=== PATIENT | female | born 1975 | race Caucasian/White ===

== ENCOUNTER 2016-10-28 20:56 | Emergency (ER) | payer MEDICAID ==
[2016-10-28] MEDS ORDERED: Ondansetron 4 MG/2 ML SDV IVPUSH ONE ×2 (21:12→23:21)
[2016-10-28] MEDS ORDERED: Aluminum Hydroxide/Magnesium Hydroxide Susp 30 ML Cup PO ONE (21:18)
[2016-10-28 21:54] VITALS: BP 106/55
[2016-10-28] MEDS ORDERED: Iopamidol 755 Mg/ML 100 ML Bottle IV SCH (22:30)
[2016-10-28] MEDS ORDERED: HYDROmorphone 2 MG/ML SDV IVPUSH ONE (23:21)
--- NOTE | 2016-10-29 00:18 | ER ---
DATE SEEN: 10/28/2016 CHIEF COMPLAINT: Abdominal distention. HISTORY OF PRESENT ILLNESS: This is a 41-year-old female with abdominal distention for about a week, but got worse tonight after she ate chicken. She complains that the distention is associated with severe pain, mostly in the right flank that radiates to the back. Has tried Gas-X with no relief. She denies any constipation, but has some nausea. PAST SURGICAL HISTORY: and hysterectomy. REVIEW OF SYSTEMS: No fever. Denies any urinary symptoms, vaginal bleeding, but complains of breast tenderness. PAST MEDICAL HISTORY: Fibromyalgia, IBS. ALLERGIES: She has an extensive list of allergies. Please see the electronic record. PHYSICAL EXAMINATION: VITAL SIGNS: Blood pressure is 106/55, pulse 117, and temp 98.1. ENT: Negative. MENTAL STATUS: Elated mood. No signs of selvin or psychosis. ABDOMEN: Slightly distended. Diffusely tender, but no rebound. Bowel sounds are present. No masses are palpable. LABORATORY DATA: CBC, CMP, and amylase were unremarkable. UA was negative. CT of the abdomen and pelvis showed mildly distended small bowel loops in the pelvis of questionable significance, possibly gastroenteritis. IMPRESSION: Abdominal distention of unknown significance. PLAN: I gave her Zofran total of 8 mg IV, and I gave Dilaudid 1 mg IV. I recommended she continue with current medications and to come back with any worsening symptoms, otherwise see Dr. Morgan on Sunday. /[id number] ALDO/ROSALBA
== END 2016-10-28 23:40 | disposition home or self-care (01) ==
LOC: FB.ED 20:56
DX: R14.0 Abdominal distension (gaseous) (principal)
CPT/HCPCS: 36415; 74177; 80053; 81001; 82150; 85025; 96374; 96375; 96376; 99284; A9270; J1170; J2405; Q9967

== ENCOUNTER 2017-12-24 11:34 | Emergency (ER) | payer MEDICAID ==
[2017-12-24] MEDS ORDERED: HYDROmorphone 2 MG/ML SDV IM ONE (12:13)
[2017-12-24] MEDS ORDERED: traMADol 50 MG Tab PO ONE (12:29)
--- NOTE | 2017-12-24 12:54 | ER ---
DATE SEEN: 12/24/2017 TIME SEEN: 1200 hours. CHIEF COMPLAINT: Pain. HISTORY OF PRESENT ILLNESS: This is a 42-year-old female with left ankle pain after she tripped and fell yesterday going down stairs in her house. She is unable to bear weight, and she has swelling. The pain is severe. PAST MEDICAL HISTORY: Fibromyalgia, ADHD, anxiety, and chronic back pain. SOCIAL HISTORY: Smoker. Denies use of drugs. PHYSICAL EXAMINATION: VITAL SIGNS: Blood pressure is normal. Pulse is 86 and temperature 98.1. MUSCULOSKELETAL: Left ankle revealed marked swelling and effusion. Tenderness to palpation, but normal peripheral pulses. Diminished range of motion. IMAGING: X-ray of the foot and ankle was negative. IMPRESSION: Sprain, ankle and foot, left. PLAN: CAM walker boot. Dilaudid 2 mg IM and tramadol 50 mg t.i.d. p.r.n. Follow up in the office with PCP, Dr. Sage, on Sunday. /[id number] ALDO/ROSALBA
[2017-12-24 14:58] VITALS: BP 116/74
--- NOTE | 2017-12-25 11:30 | CR ---
INDICATION: Left foot pain, missed two steps, rolled ankle, heard pop. LEFT FOOT: Three views of the left foot were obtained and revealed soft tissue swelling overlying the lateral malleolus. A fracture, dislocation, or other significant bone or joint abnormality was not identified. MTDD
--- NOTE | 2017-12-25 11:33 | CR ---
INDICATION: Left foot pain, missed two steps, rolled ankle, heard pop. LEFT ANKLE: Three views of the left ankle were obtained and revealed minimal hypertrophic change at the medial aspect of the ankle mortise - medial malleolus , most likely on the basis of posttraumatic osteoarthritis of mild degree. There appears to be some mild soft tissue swelling over the dorsum of the foot at the level of the metatarsals. A definite fracture, dislocation, or other definite bone or joint abnormality was not identified, except to note a minimal hypertrophic spur off the medial malleolus, which may be on the basis of mild degree of posttraumatic osteoarthritis. IMPRESSION: 1. No definite acute fracture or dislocation. 2. Minimal posttraumatic osteoarthritis ankle mortise. MTDD
== END 2017-12-24 13:25 | disposition home or self-care (01) ==
LOC: FB.ED 11:34
DX: S93.402A Sprain of unspecified ligament of left ankle, initial encounter (principal); W01.0XXA Fall on same level from slipping, tripping and stumbling without subsequent striking against object, initial encounter
CPT/HCPCS: 73610; 73630; 99283; A9270; J1170

== ENCOUNTER 2018-01-11 17:09 | Emergency (ER) | payer MEDICAID ==
[2018-01-11] MEDS ORDERED: hydrOXYzine HCl 50 MG/ML SDV IM ONE (17:20)
--- NOTE | 2018-01-11 17:27 | EDM.PDOC ---
ED HPI GENERAL MEDICAL PROBLEM - General Chief Complaint: Allergic Reaction Stated Complaint: POSSIBLE ALLERGIC REACTION Time Seen by Provider: 01/11/18 17:10 Source of Information: Reports: Patient, EMS History Limitations: Reports: No Limitations - History of Present Illness INITIAL COMMENTS - FREE TEXT/NARRATIVE: Patrick comes into [facility] ED by EMS for suspected allergic reaction to a new antibx Macrodantin 50 mg that was consumed at 3:30 pm today. About 30 minutes after taking the capsule, she felt some tightness in the throat, her tongue may be enlarging, and suspected facial swelling. There was no visible swelling of the lips, hoarseness, stridor, wheezing, or jamari SOB. She summoned EMS for transport. Upon arrival, VSS, no jamari clinical findings for angioedema, urticaria, or analphylaxis. She was empirically dosed with Vistaril 50 mg IM and will be observed for an hour. lower back & legs Pain Score (Numeric/FACES): 7 - Related Data Allergies Allergy/AdvReac Type Severity Reaction Status Date / Time acetaminophen [From Tylenol] Allergy Anaphylactic Verified 01/11/18 18:09 Shock diphenhydramine HCl Allergy Hyperactivi Verified 01/11/18 18:09 [From Benadryl] ty ketorolac tromethamine Allergy Hives Verified 01/11/18 18:09 [From Toradol] meperidine HCl [From Demerol] Allergy Anaphylactic Verified 01/11/18 18:09 Shock peanut Allergy Anaphylactic Verified 01/11/18 18:09 Shock Penicillins Allergy Anaphylactic Verified 01/11/18 18:09 Shock Home Meds: Home Meds Amitriptyline [Elavil] 10 mg PO BEDTIME PRN 01/11/18 [History] Benzonatate 200 mg PO TID PRN 01/11/18 [History] Clotrimazole/Betamethasone Dip [Lotrisone Cream] 1 applic TOP BID 01/11/18 [ History] Diphenoxylate HCl/Atropine [Diphenoxylate-Atrop 2.5-0.025] 1 tab PO QID PRN [History] FLUoxetine HCl [Prozac] 20 mg PO DAILY 01/11/18 [History] Nitrofurantoin [place]/Macrocryst [Nitrofurantoin [place]-MCR] 100 mg PO BID 01/11/18 [History] Past Medical History - Past Health History Medical/Surgical History: Denies Medical/Surgical History Cardiovascular History: Reports: Blood Clots/VTE/DVT Genitourinary History: Reports: UTI, Recurrent (called 01/11/18 with positive UC at [facility]) Musculoskeletal History: Reports: Fibromyalgia Other Musculoskeletal History: DEGENERATIVE DISC DISEASE/BULDGING DISC Social & Family History - Family History Family Medical History: Noncontributory - Caffeine Use Caffeine Use: Reports: None - Living Situation & Occupation Living situation: Reports: , Single, with Significant Other Occupation: Unemployed ED ROS ALLERGIC REACTION - Review of Systems Review Of Systems: ROS reveals no pertinent complaints other than HPI. ED EXAM GENERAL NO PERIP PULSE - Physical Exam Exam: See Below Exam Limited By: No Limitations General Appearance: Alert, WD/WN, No Apparent Distress, Anxious Eye Exam: Bilateral Eye: EOMI, Normal Inspection, PERRL Ears: Normal External Exam Nose: Normal Inspection Throat/Mouth: Normal Inspection, Normal Lips, Normal Gums, Normal Oropharynx, Normal Voice, No Airway Compromise Head: Normocephalic Neck: Normal Inspection, Supple, Non-Tender Respiratory/Chest: No Respiratory Distress, Lungs Clear, Normal Breath Sounds, No Accessory Muscle Use Cardiovascular: Regular Rate, Rhythm, No Murmur GI/Abdominal: Normal Bowel Sounds, Soft, No Organomegaly, No Distention, No Mass , Tender (mild tenderness LLQ>RLQ) (Female) Exam: Deferred Rectal (Female) Exam: Deferred Back Exam: Normal Inspection Extremities: Normal Inspection Neurological: Alert, Oriented, CN II-XII Intact, Normal Cognition, Normal Gait, No Motor/Sensory Deficits Psychiatric: Normal Affect, Anxious Skin Exam: Warm, Dry, Intact, No Rash, Other (vitiligo) Lymphatic: No Adenopathy Course - Vital Signs Text/Narrative:: Simina remained stable at the [facility] ED. Additiional meds administered included Tramadol 50 mg for headache, and Zofran ODT 4 mg for nausea. Reexamination was unremarkable at time of discharge. - Orders/Labs/Meds Meds: Medications Discontinued Medications Generic Name Dose Route Start Last Admin Trade Name Freq PRN Reason Stop Dose Admin Hydroxyzine HCl 50 mg 01/11/18 17:20 01/11/18 17:27 Vistaril IM 01/11/18 17:21 50 mg ONETIME ONE Administration Ondansetron HCl 4 mg 01/11/18 18:11 01/11/18 18:16 Zofran Odt PO 01/11/18 18:12 4 mg ONETIME STA Administration Tramadol HCl 50 mg 01/11/18 18:10 01/11/18 18:15 Ultram PO 01/11/18 18:11 50 mg ONETIME ONE Administration Departure - Departure Time of Disposition: 18:56 Disposition: Home, Self-Care 01 Condition: Good Clinical Impression: Medication side effect - Discharge Information Referrals: Moe Sage MD [Primary Care Provider] - Forms: ED Department Discharge - Problem List & Annotations (1) Medication side effect SNOMED Code(s): 581950765 Code(s): T88.7XXA - UNSP ADVERSE EFFECT OF DRUG OR MEDICAMENT, INIT ENCNTR Status: Acute Current Visit: Yes Annotation/Comment:: Patrick will contact the Clinic to update medication concerns and a prescription for her UTI. - Problem List Review Problem List Initiated/Reviewed/Updated: Yes - Assessment/Plan Plan: Follow up with PCP.
[2018-01-11] MEDS ORDERED: traMADol 50 MG Tab PO ONE (18:10)
[2018-01-11] MEDS ORDERED: Ondansetron 4 MG Tab.DIS PO STA (18:11)
[2018-01-11 18:57] VITALS: BP 105/62
== END 2018-01-11 19:30 | disposition home or self-care (01) ==
LOC: FB.ED 17:09
DX: R07.0 Pain in throat (principal); T37.8X5A Adverse effect of other specified systemic anti-infectives and antiparasitics, initial encounter; Z88.5 Allergy status to narcotic agent; Z91.010 Allergy to peanuts; Z88.8 Allergy status to other drugs, medicaments and biological substances; Z88.6 Allergy status to analgesic agent; Z88.0 Allergy status to penicillin; Z79.899 Other long term (current) drug therapy
CPT/HCPCS: 96372; 99283; A9270; J3410

== ENCOUNTER 2019-09-14 12:51 | Emergency (ER) | payer MEDICAID ==
--- NOTE | 2019-09-14 12:59 | EDM.PDOC ---
ED HPI GENERAL MEDICAL PROBLEM - General Stated Complaint: CHEST PAIN Time Seen by Provider: 09/14/19 12:55 Source of Information: Reports: Patient History Limitations: Reports: No Limitations - History of Present Illness INITIAL COMMENTS - FREE TEXT/NARRATIVE: 44-year-old female with onset of nasal congestion and cough approximately one month ago and was seen at the [facility] and was diagnosed with a pneumonia and placed on antibiotics at that time. 2 weeks later she was not improved and was placed on another Z-Phill. Z-Phill did not seem to work and she was placed on yet another antibiotic to go and she has finished this and still having symptoms of cough with brown, yellow and green phlegm and over the past 3 days has developed pain in her central chest that has now gone through to her back and is a pressure type pains that she reports is like a bear hugging her. The pain seemed to get much worse between 11 AM and noon today and she called the ambulance to bring her in to the emergency department. She feels short of breath. The pain is worse with movement, with palpation and with deep breath. He has had nausea with some dry heaving. She has not really been able to take liquids very well and she is not eating. No diarrhea. No dysuria or hematuria. She rates the pain as a 9-10/10. Resting seems to make it better. The pain has been continual for the past 3 days. There are no other associated signs or symptoms. There are no other modifying factors. Onset: Other (For the past month and worse over the past 3 days) Duration: Getting Worse Location: Reports: Chest, Back Quality: Reports: Pressure Severity: Moderate (to severe) Improves with: Reports: Rest Worsens with: Reports: Breathing, Other (Palpation off.), Movement Context: Reports: Other (As above) Associated Symptoms: Reports: Chest Pain, Cough, Fever/Chills, Loss of Appetite , Malaise, Nausea/Vomiting, Shortness of Breath Treatments EMS DRIVER: Reports: Other (see below) (Nothing) - Related Data Allergies Allergy/AdvReac Type Severity Reaction Status Date / Time acetaminophen [From Tylenol] Allergy Anaphylactic Verified 01/11/18 18:09 Shock diphenhydramine HCl Allergy Hyperactivi Verified 01/11/18 18:09 [From Benadryl] ty ketorolac tromethamine Allergy Hives Verified 01/11/18 18:09 [From Toradol] meperidine HCl [From Demerol] Allergy Anaphylactic Verified 01/11/18 18:09 Shock peanut Allergy Anaphylactic Verified 01/11/18 18:09 Shock Penicillins Allergy Anaphylactic Verified 01/11/18 18:09 Shock Home Meds: Home Meds Amitriptyline [Elavil] 10 mg PO BEDTIME PRN 01/11/18 [History] Benzonatate 200 mg PO TID PRN 01/11/18 [History] Clotrimazole/Betamethasone Dip [Lotrisone Cream] 1 applic TOP BID 01/11/18 [ History] Diphenoxylate HCl/Atropine [Diphenoxylate-Atrop 2.5-0.025] 1 tab PO QID PRN [History] FLUoxetine HCl [Prozac] 20 mg PO DAILY 01/11/18 [History] Nitrofurantoin [place]/Macrocryst [Nitrofurantoin [place]-MCR] 100 mg PO BID 01/11/18 [History] Codeine Sulfate 30 mg PO Q6H PRN #14 tab 09/14/19 [Rx] Ondansetron [Zofran ODT] 4 mg PO Q6H PRN #10 tab.dis 09/14/19 [Rx] Past Medical History Cardiovascular History: Reports: Blood Clots/VTE/DVT Genitourinary History: Reports: UTI, Recurrent (called 01/11/18 with positive UC at [facility]) Musculoskeletal History: Reports: Back Pain, Chronic, Fibromyalgia Other Musculoskeletal History: DEGENERATIVE DISC DISEASE/BULDGING DISC Psychiatric History: Reports: ADD, Anxiety, Depression Dermatologic History: Reports: Other (See Below) Other Dermatologic History: Vitiligo - Past Surgical History HEENT Surgical History: Reports: Oral Surgery Female Surgical History: Reports: Section, D&C, Hysterectomy, Other (See Below) (Surgery for tubal ) Social & Family History - Family History Cardiac: Reports: CAD (And father and grandfather), Hypertension, SD (And father and grandfather) - Tobacco Use Smoking Status *Q: Current Every Day Smoker - Caffeine Use Caffeine Use: Reports: None - Alcohol Use Alcohol Use History: No - Recreational Drug Use Recreational Drug Use: No - Living Situation & Occupation Living situation: Reports: , Single Occupation: Unemployed ED ROS GENERAL - Review of Systems Review Of Systems: See Below Constitutional: Reports: Fever, Chills, Malaise, Fatigue HEENT: Reports: Other (Nasal congestion) Respiratory: Reports: Shortness of Breath, Cough, Sputum Cardiovascular: Reports: Chest Pain GI/Abdominal: Reports: Nausea : Reports: No Symptoms Musculoskeletal: Reports: Back Pain Skin: Reports: No Symptoms Neurological: Reports: No Symptoms Hematologic/Lymphatic: Reports: No Symptoms Immunologic: Reports: No Symptoms ED EXAM, GENERAL - Physical Exam Exam: See Below Exam Limited By: No Limitations General Appearance: Alert, WD/WN, Moderate Distress (Appears in pain) Eye Exam: Bilateral Eye: EOMI, Normal Inspection, PERRL Ears: Hearing Grossly Normal Ear Exam: Bilateral Ear: Auricle Normal Nose: No Blood, Nasal Drainage Throat/Mouth: Normal Inspection, Normal Oropharynx, Normal Voice, No Airway Compromise Head: Atraumatic, Normocephalic Neck: Normal Inspection, Supple, Non-Tender, Full Range of Motion Respiratory/Chest: No Respiratory Distress, Normal Breath Sounds, No Accessory Muscle Use, Wheezing, Other (Tender to palpation over anterior chest) Cardiovascular: Normal Peripheral Pulses, Regular Rate, Rhythm, No Edema, No JVD , No Murmur Peripheral Pulses: 2+: Radial (L), Radial (R), Dorsalis Pedis (L), Dorsalis Pedis (R) GI/Abdominal: Normal Bowel Sounds, Soft, Non-Tender, No Mass Back Exam: Normal Inspection, Full Range of Motion Extremities: Normal Inspection, Normal Range of Motion, Non-Tender, No Pedal Edema, Normal Capillary Refill Neurological: Alert, Oriented, CN II-XII Intact, Normal Cognition, No Motor/ Sensory Deficits Psychiatric: Anxious Skin Exam: Warm, Dry, Intact, Normal Color, No Rash EKG INTERPRETATION EKG Date: 09/14/19 Time: 13:23 Rhythm: NSR Rate (Beats/Min): 65 [place]: Normal P-Wave: Present QRS: Normal ST-T: Normal QT: Normal Comparison: NA - No Prior EKG EKG Interpretation Comments: Normal EKG Course - Orders/Labs/Meds Orders: Active Orders 24 hr Category Date Time Status EKG Documentation Completion [RC] ASDIRECTED Care 09/14/19 13:15 Active RT Aerosol Therapy [RC] ASDIRECTED Care 09/14/19 13:16 Active Ang Chest [CT] Stat Exams 09/14/19 15:11 Taken Chest 2V [CR] Stat Exams 09/14/19 13:14 Taken Morphine Med 09/14/19 18:49 Once 4 mg IVPUSH ONETIME ONE Ondansetron [Zofran] Med 09/14/19 18:49 Once 4 mg IVPUSH ONETIME ONE Sodium Chloride 0.9% [Saline Flush] Med 09/14/19 13:14 Active 10 ml FLUSH ASDIRECTED PRN Peripheral IV Insertion Adult [OM.PC] Routine Oth 09/14/19 13:14 Ordered EKG 12 Lead [EK] Routine Ther 09/14/19 13:14 Ordered Medication Orders Sodium Chloride (Saline Flush) 10 ml FLUSH ASDIRECTED PRN PRN Reason: Keep Vein Open Labs: Laboratory Tests 09/14/19 09/14/19 09/14/19 Range/Units 13:25 13:25 13:25 WBC 9.7 (4.5-12.0) X10-3/uL RBC 4.39 (3.23-5.20) x10(6)uL Hgb 12.9 (11.5-15.5) g/dL Hct 38.5 (30.0-51.3) % MCV 87.7 (80-96) fL MCH 29.5 (27.7-33.6) pg MCHC 33.6 (32.2-35.4) g/dL RDW 14.4 (11.5-15.5) % Plt Count 304 (125-369) X10(3)uL MPV 7.5 (7.4-10.4) fL Neut % (Auto) 72.9 (46-82) % Lymph % (Auto) 20.0 (13-37) % Posey % (Auto) 3.4 L (4-12) % Eos % (Auto) 3 (1.0-5.0) % Baso % (Auto) 1 (0-2) % Neut # (Auto) 7.2 (1.6-8.3) # Lymph # (Auto) 1.9 (0.6-5.0) # Posey # (Auto) 0.3 (0.0-1.3) # Eos # (Auto) 0.3 (0.0-0.8) # Baso # (Auto) 0.0 (0.0-0.2) # D-Dimer, Quantitative (0.0-0.59) mg/LFEU Sodium 143 (135-145) mmol/L Potassium 3.8 (3.5-5.3) mmol/L Chloride 107 (100-110) mmol/L Carbon Dioxide 25 (21-32) mmol/L BUN 10 (7-18) mg/dL Creatinine 0.6 (0.55-1.02) mg/dL Est Cr Clr Drug Dosing TNP Estimated GFR (MDRD) > 60 (>60) BUN/Creatinine Ratio 16.7 (9-20) Glucose 87 (80-116) mg/dL Calcium 8.1 L (8.6-10.2) mg/dL Magnesium 1.5 L (1.8-2.5) mg/dL Total Bilirubin 0.3 (0.1-1.3) mg/dL AST 10 (5-25) IU/L ALT 16 (12-36) U/L Alkaline Phosphatase 54 L (56-112) IU/L Troponin I 4.1 (4.0-60.3) pg/mL C-Reactive Protein < 0.2 L (0.5-0.9) mg/dL Total Protein 6.3 (6.0-8.0) g/dL Albumin 3.1 L (3.5-5.2) g/dL Globulin 3.2 g/dL Albumin/Globulin Ratio 1.0 02/16/20 Range/Units 13:25 WBC (4.5-12.0) X10-3/uL RBC (3.23-5.20) x10(6)uL Hgb (11.5-15.5) g/dL Hct (30.0-51.3) % MCV (80-96) fL MCH (27.7-33.6) pg MCHC (32.2-35.4) g/dL RDW (11.5-15.5) % Plt Count (125-369) X10(3)uL MPV (7.4-10.4) fL Neut % (Auto) (46-82) % Lymph % (Auto) (13-37) % Posey % (Auto) (4-12) % Eos % (Auto) (1.0-5.0) % Baso % (Auto) (0-2) % Neut # (Auto) (1.6-8.3) # Lymph # (Auto) (0.6-5.0) # Posey # (Auto) (0.0-1.3) # Eos # (Auto) (0.0-0.8) # Baso # (Auto) (0.0-0.2) # D-Dimer, Quantitative 0.38 (0.0-0.59) mg/LFEU Sodium (135-145) mmol/L Potassium (3.5-5.3) mmol/L Chloride (100-110) mmol/L Carbon Dioxide (21-32) mmol/L BUN (7-18) mg/dL Creatinine (0.55-1.02) mg/dL Est Cr Clr Drug Dosing Estimated GFR (MDRD) (>60) BUN/Creatinine Ratio (9-20) Glucose (80-116) mg/dL Calcium (8.6-10.2) mg/dL Magnesium (1.8-2.5) mg/dL Total Bilirubin (0.1-1.3) mg/dL AST (5-25) IU/L ALT (12-36) U/L Alkaline Phosphatase (56-112) IU/L Troponin I (4.0-60.3) pg/mL C-Reactive Protein (0.5-0.9) mg/dL Total Protein (6.0-8.0) g/dL Albumin (3.5-5.2) g/dL Globulin g/dL Albumin/Globulin Ratio Meds: Medications Generic Name Dose Route Start Last Admin Trade Name Freq PRN Reason Stop Dose Admin Sodium Chloride 10 ml 09/14/19 13:14 Saline Flush FLUSH ASDIRECTED PRN Keep Vein Open Discontinued Medications Generic Name Dose Route Start Last Admin Trade Name Freq PRN Reason Stop Dose Admin Albuterol/Ipratropium 3 ml 09/14/19 13:15 09/14/19 14:05 Duoneb 3.0-0.5 Mg/3 Ml NEB 09/14/19 13:16 3 ml ONETIME ONE Administration Sodium Chloride 1,000 mls @ 999 mls/hr 09/14/19 13:16 09/14/19 13:45 Normal Saline IV 09/14/19 14:16 999 mls/hr .BOLUS ONE Administration Magnesium Sulfate 2 gm/ Premix 50 mls @ 150 mls/hr 09/14/19 14:32 09/14/19 14 :44 IV 09/14/19 14:51 150 mls/hr ONETIME ONE Administration Iopamidol 75 ml 09/14/19 16:50 09/14/19 17:39 Isovue-370 (76%) IV 09/14/19 16:51 75 ml . DIRECTED ONE Administration Ketorolac Tromethamine 30 mg 09/14/19 13:15 Toradol IVPUSH 09/14/19 13:16 ONETIME ONE Methylprednisolone Sodium Succinate 125 mg 09/14/19 13:15 09/14/19 14:44 Solu-Medrol IVPUSH 09/14/19 13:16 125 mg ONETIME ONE Administration Morphine Sulfate 4 mg 09/14/19 15:11 09/14/19 15:25 Morphine IVPUSH 09/14/19 15:12 4 mg ONETIME ONE Administration Ondansetron HCl 4 mg 09/14/19 13:32 09/14/19 14:05 Zofran IVPUSH 09/14/19 13:33 4 mg ONETIME ONE Administration - Radiology Interpretation Free Text/Narrative:: Chest x-ray PA and lateral shows no acute disease. CT scan of chest with IV contrast shows no evidence of pulmonary emboli and there is a 3 mm pulmonary nodule in the right lung that will need to be followed up in [address] scan per the radiologist. No other abnormalities were identified. - Re-Assessments/Exams Free Text/Narrative Re-Assessment/Exam: 09/14/19 15:05: Patient's lab tests are all reassuringly normal. The chest x- ray showed no evidence of pneumonia, failure, pneumothorax or pleural effusion. The EKG was normal and the troponin was normal. As the patient has been having continual chest pain for the past 3 days, I feel this rules out SD and makes a cardiac etiology of her pain very unlikely. The patient is still having fairly significant pain and she is quite concerned about this. The patient has had a history of DVT in the past and despite her negative d-dimer, I will send her for a CTA of her chest. I will also give the patient medication for pain. He states that she has tolerated morphine in the past without problems. She also states that she has tolerated codeine in the past without problems. 09/14/19 18:50: The CTA of her chest was negative. She did have a pulmonary nodule the will need to be followed up by her primary provider in one year by CT scan. She feels somewhat improved after the pain medications but is requesting additional pain medications and antinausea medications now. I do not see anything of a serious nature at this time. She does feel be ready for discharge. I am unsure why she is having the chest pain and her workup is not shown a definite etiology of this. Precautions and reasons for return to the emergency department were discussed with the patient prior to her discharge. I will give the patient prescription for codeine and Zofran for discharge. Departure - Departure Time of Disposition: 19:00 Disposition: Home, Self-Care 01 Condition: Good (Stable) Clinical Impression: Pulmonary nodule, right Chest pain Qualifiers: Chest pain type: unspecified Qualified Code(s): R07.9 - Chest pain, unspecified Prescriptions: Codeine Sulfate 30 mg PO Q6H PRN #14 tab PRN Reason: Moderate to severe pain Ondansetron [Zofran ODT] 4 mg PO Q6H PRN #10 tab.dis PRN Reason: Nausea/Vomiting Instructions: Nonspecific Chest Pain, [id number], Pulmonary Nodule, Easy-to- Read Referrals: Moe Sage MD [Primary Care Provider] - Additional Instructions: Your blood tests were all reassuringly normal. Your chest x-ray was normal. The CT scan of your chest showed no evidence of blood clots and no evidence of pneumonia, heart failure or any other serious problem. You do have a small nodule in your right lung that will need to be followed up by your primary doctor with a repeat CT scan in 1 year. It is not anything that would be causing your pain at this time. I am unsure why you are having the chest pain. However, it appears to be pain in the muscles and skeleton and cartilage of your chest wall. You should rest. You should drink plenty of fluids. Ibuprofen for your pain as needed. Medication as prescribed (codeine 30 mg, Zofran 4 mg ODT). Follow-up with your primary doctor. Back to the emergency department for worse breathing, worsening pain, high fever, unrelenting vomiting or any other concerning sign or symptom. Sepsis Event Note - Focused Exam Date Exam was Performed: 09/14/19 Time Exam was Performed: 18:50 - My Orders Last 24 Hours: My Active Orders 09/14/19 13:14 Chest 2V [CR] Stat Sodium Chloride 0.9% [Saline Flush] 10 ml FLUSH ASDIRECTED PRN Peripheral IV Insertion Adult [OM.PC] Routine EKG 12 Lead [EK] Routine 09/14/19 13:15 EKG Documentation Completion [RC] ASDIRECTED 09/14/19 13:16 RT Aerosol Therapy [RC] ASDIRECTED 09/14/19 15:11 Ang Chest [CT] Stat 09/14/19 18:49 Morphine 4 mg IVPUSH ONETIME ONE Ondansetron [Zofran] 4 mg IVPUSH ONETIME ONE - Assessment/Plan Last 24 Hours: My Active Orders 09/14/19 13:14 Chest 2V [CR] Stat Sodium Chloride 0.9% [Saline Flush] 10 ml FLUSH ASDIRECTED PRN Peripheral IV Insertion Adult [OM.PC] Routine EKG 12 Lead [EK] Routine 09/14/19 13:15 EKG Documentation Completion [RC] ASDIRECTED 09/14/19 13:16 RT Aerosol Therapy [RC] ASDIRECTED 09/14/19 15:11 Ang Chest [CT] Stat 09/14/19 18:49 Morphine 4 mg IVPUSH ONETIME ONE Ondansetron [Zofran] 4 mg IVPUSH ONETIME ONE
[2019-09-14] MEDS ORDERED: Sodium Chloride 0.9% 10 ML Syringe FLUSH PRN (13:14)
[2019-09-14] MEDS ORDERED: Albuterol/Ipratropium 3.0-0.5 MG/3 ML Neb Soln NEB ONE (13:15)
[2019-09-14] MEDS ORDERED: methylPREDNISolone Sodium Succinate 125 MG/2 ML SDV IVPUSH ONE (13:15)
[2019-09-14] MEDS ORDERED: Ketorolac 30 MG/ML SDV IVPUSH ONE (13:15)
[2019-09-14] MEDS ORDERED: Sodium Chloride 0.9% 1,000 ML IV ONE (13:16)
[2019-09-14] MEDS ORDERED: Ondansetron 4 MG/2 ML SDV IVPUSH ONE ×2 (13:32→18:49)
[2019-09-14] MEDS ORDERED: Magnesium Sulfate/Water 2 GM in Premix Bag 1 BAG IV ONE (14:32)
[2019-09-14] MEDS ORDERED: Morphine 2 MG/ML SYRINGE IVPUSH ONE ×2 (15:11→18:49)
[2019-09-14] MEDS ORDERED: Iopamidol 755 Mg/ML 100 ML Bottle IV ONE (16:50)
[2019-09-14 20:50] VITALS: BP 101/47; PULSE 66
== END 2019-09-14 19:10 | disposition home or self-care (01) ==
LOC: FB.ED 12:51
DX: R91.1 Solitary pulmonary nodule (principal); F17.210 Nicotine dependence, cigarettes, uncomplicated; Z88.0 Allergy status to penicillin; Z91.010 Allergy to peanuts; Z88.8 Allergy status to other drugs, medicaments and biological substances; R07.9 Chest pain, unspecified
CPT/HCPCS: 36415; 71046; 71275; 80053; 83735; 84484; 85025; 85379; 86140; 93005; 94640; 96361; 96365; 96375; 96376; 99284; 99285; J2270; J2405; J2930; J3475; J7030; Q9967; J7620-GY

== ENCOUNTER 2019-09-20 07:40 | Emergency (ER) | payer MEDICAID ==
[2019-09-20] MEDS ORDERED: HYDROmorphone 2 MG/ML SDV IM ONE ×2 (08:01→09:05)
[2019-09-20] MEDS ORDERED: Ondansetron 4 MG/2 ML SDV IM ONE (08:02)
--- NOTE | 2019-09-20 08:09 | EDM.PDOC ---
ED HPI GENERAL MEDICAL PROBLEM - General Chief Complaint: Upper Extremity Injury/Pain Stated Complaint: RT ARM PAIN Time Seen by Provider: 09/20/19 08:05 Source of Information: Reports: Patient History Limitations: Reports: No Limitations - History of Present Illness INITIAL COMMENTS - FREE TEXT/NARRATIVE: Patient slipped on ice while wearing high heeled shoes this morning, landed on right arm. Complains of severe right upper arm pain, feels bones crunching in right upper arm. Patient is left hand dominant. No other injuries. Onset: Today Duration: Hour(s): (1) Location: Reports: Upper Extremity, Right Severity: Severe Right Arm Pain Score (Numeric/FACES): 10 - Related Data Allergies Allergy/AdvReac Type Severity Reaction Status Date / Time acetaminophen [From Tylenol] Allergy Anaphylactic Verified 01/11/18 18:09 Shock diphenhydramine HCl Allergy Hyperactivi Verified 01/11/18 18:09 [From Benadryl] ty ketorolac tromethamine Allergy Hives Verified 01/11/18 18:09 [From Toradol] meperidine HCl [From Demerol] Allergy Anaphylactic Verified 01/11/18 18:09 Shock peanut Allergy Anaphylactic Verified 01/11/18 18:09 Shock Penicillins Allergy Anaphylactic Verified 01/11/18 18:09 Shock Home Meds: Home Meds Amitriptyline [Elavil] 10 mg PO BEDTIME PRN 01/11/18 [History] Benzonatate 200 mg PO TID PRN 01/11/18 [History] Clotrimazole/Betamethasone Dip [Lotrisone Cream] 1 applic TOP BID PRN 01/11/18 [ History] Diphenoxylate HCl/Atropine [Diphenoxylate-Atrop 2.5-0.025] 1 tab PO QID PRN [History] Ondansetron [Zofran ODT] 4 mg PO Q6H PRN #10 tab.dis 09/14/19 [Rx] ALPRAZolam [Alprazolam] 1 mg PO BID 09/20/19 [History] Dextroamphetamine/Amphetamine [Adderall 20 mg Tablet] 20 mg PO BID 09/20/19 [ History] oxyCODONE HCl [Oxycodone HCl] 10 mg PO Q6H PRN #16 tablet 09/20/19 [Rx] Past Medical History Cardiovascular History: Reports: Blood Clots/VTE/DVT Genitourinary History: Reports: UTI, Recurrent (called 01/11/[address] [facility]) Musculoskeletal History: Reports: Back Pain, Chronic, Fibromyalgia Other Musculoskeletal History: DEGENERATIVE DISC DISEASE/BULDGING DISC Psychiatric History: Reports: ADD, Anxiety, Depression Dermatologic History: Reports: Other (See Below) Other Dermatologic History: Vitiligo - Past Surgical History HEENT Surgical History: Reports: Oral Surgery Female Surgical History: Reports: Section, D&C, Hysterectomy, Other (See Below) (Surgery for tubal ) Social & Family History - Family History Family Medical History: Noncontributory Cardiac: Reports: CAD (And father and grandfather), Hypertension, [place] (And father and grandfather) - Caffeine Use Caffeine Use: Reports: None - Living Situation & Occupation Living situation: Reports: , Single Occupation: Unemployed Review of Systems - Review of Systems Review Of Systems: Comprehensive ROS is negative, except as noted in HPI. ED EXAM, GENERAL - Physical Exam Exam: See Below Exam Limited By: No Limitations General Appearance: Alert, WD/WN, No Apparent Distress Eye Exam: Bilateral Eye: EOMI, PERRL Ears: Normal External Exam Nose: Normal Inspection Throat/Mouth: No Airway Compromise Head: Atraumatic, Normocephalic Neck: Non-Tender Respiratory/Chest: No Respiratory Distress, Lungs Clear, Normal Breath Sounds Cardiovascular: Regular Rate, Rhythm, No Murmur Peripheral Pulses: 2+: Radial (R) Back Exam: Full Range of Motion Extremities: Normal Capillary Refill, Other (tenderness and swelling right upper arm) Neurological: Alert, Normal Cognition, No Motor/Sensory Deficits Psychiatric: Normal Affect, Normal Mood Skin Exam: Warm, Dry, Intact ED TRAUMA EXTREMITY PROCEDURES - Splinting Right Upper Extremity Splint Site: right upper arm Pre-Procedure NV Status: Normal Post-Procedure NV Status: Normal Splint Material: Other (Orthoglass) Splint Design: Other (Coaptation) Applied & Form Fitted By: Provider Provider Post-Splint Application NV Check: NV Status Normal Complications: No Course - Vital Signs Last Recorded V/S: Last Vital Signs Temp 36.4 C 09/20/19 09:51 Pulse 97 09/20/19 09:51 Resp 18 09/20/19 09:51 BP 101/74 09/20/19 09:51 Pulse Ox 97 09/20/19 09:51 - Orders/Labs/Meds Orders: Active Orders 24 hr Category Date Time Status Humerus Rt [CR] Stat Exams 09/20/19 08:03 Taken Humerus Rt [CR] Stat Exams 09/20/19 09:31 Taken Meds: Medications Discontinued Medications Generic Name Dose Route Start Last Admin Trade Name Freq PRN Reason Stop Dose Admin Hydromorphone HCl 1 mg 09/20/19 08:01 09/20/19 08:23 Dilaudid IM 09/20/19 08:02 1 mg ONETIME ONE Administration Hydromorphone HCl 1 mg 09/20/19 09:05 09/20/19 09:11 Dilaudid IM 09/20/19 09:06 1 mg ONETIME ONE Administration Ondansetron HCl 4 mg 09/20/19 08:02 09/20/19 08:23 Zofran IM 09/20/19 08:03 4 mg ONETIME ONE Administration - Radiology Interpretation Free Text/Narrative:: Right Humerus Xray: angulated and displaced midshaft humerus fracture. (ED provider interpretation) Right Humerus Xray #2 (post splinting): improved alignment of fracture. (ED provider interpretation) - Re-Assessments/Exams Free Text/Narrative Re-Assessment/Exam: 09/20/19 10:21 Patient reports improved pain after Dilaudid 2mg IM and splinting. Codeine 30mg #14 (4 day supply) was prescribed on 09/15/19, patient states she only has 1 pill left. Will Rx Oxycodone 10mg q6h PRN #16, patient instructed not to take Codeine with this medication. 09/20/19 11:22 Patient care discussed with Dr. Key, advises splint and outpatient follow up in @1 week. Departure - Departure Time of Disposition: 11:22 Disposition: Home, Self-Care 01 Condition: Good Clinical Impression: Fracture of humerus Qualifiers: Encounter type: initial encounter Humerus Location: shaft Fracture type: closed Fracture morphology: unspecified fracture morphology Laterality: right Qualified Code(s): S42.301A - Unspecified fracture of shaft of humerus, right arm, initial encounter for closed fracture - Discharge Information *PRESCRIPTION DRUG MONITORING PROGRAM REVIEWED*: Yes *COPY OF PRESCRIPTION DRUG MONITORING REPORT IN PATIENT LULU: No Prescriptions: oxyCODONE HCl [Oxycodone HCl] 10 mg PO Q6H PRN #16 tablet PRN Reason: Pain Instructions: Humerus Fracture Treated With Immobilization, [id number], Cast or Splint Care, Adult, [id number], Pain Medicine Instructions, [id number] Referrals: Lexa Key MD [Ordering Only Provider] - 09/25/19 Forms: ED Department Discharge Additional Instructions: Follow up with [facility] Orthopedic surgery in 5-6 days, remain in the splint until then. Fill the Oxycodone prescription and take as directed. Do not take Codeine while on this medication. Sepsis Event Note - Evaluation Sepsis Screening Result: No Definite Risk - Focused Exam Vital Signs: Vital Signs Temp Pulse Resp BP Pulse Ox 09/20/19 09:51 36.4 C 97 18 101/74 97 09/20/19 07:59 36.1 C 72 18 101/71 94 L Date Exam was Performed: 09/20/19 Time Exam was Performed: 11:22 - My Orders Last 24 Hours: My Active Orders 09/20/19 08:03 Humerus Rt [CR] Stat 09/20/19 09:31 Humerus Rt [CR] Stat - Assessment/Plan Last 24 Hours: My Active Orders 09/20/19 08:03 Humerus Rt [CR] Stat 09/20/19 09:31 Humerus Rt [CR] Stat
[2019-09-20 09:52] VITALS: BP 101/74; PULSE 97
== END 2019-09-20 13:14 | disposition home or self-care (01) ==
LOC: FB.ED 07:40
DX: S42.301A Unspecified fracture of shaft of humerus, right arm, initial encounter for closed fracture (principal); F41.9 Anxiety disorder, unspecified; Z88.8 Allergy status to other drugs, medicaments and biological substances; Z88.5 Allergy status to narcotic agent; Z88.0 Allergy status to penicillin; Z91.010 Allergy to peanuts; Z79.899 Other long term (current) drug therapy; W00.0XXA Fall on same level due to ice and snow, initial encounter
CPT/HCPCS: 29105; 73060-RT; 96372; 99284-25; J1170; J2405

== ENCOUNTER 2019-10-01 18:45 | Emergency (ER) | payer MEDICAID ==
[2019-10-01] MEDS ORDERED: HYDROmorphone 2 MG/ML SDV IM ONE (20:42)
[2019-10-01] MEDS ORDERED: Ondansetron 4 MG Tab.DIS PO ONE (20:43)
[2019-10-01] MEDS ORDERED: Apixaban 5 MG Tab PO ONE (21:09)
--- NOTE | 2019-10-01 21:16 | EDM.PDOC ---
ED HPI GENERAL MEDICAL PROBLEM - General Chief Complaint: Upper Extremity Injury/Pain Time Seen by Provider: 10/01/19 20:00 Source of Information: Reports: Patient History Limitations: Reports: No Limitations - History of Present Illness INITIAL COMMENTS - FREE TEXT/NARRATIVE: c/o arm pain pt with midshaft R humeral fx 15d ago, walking home on high heels from [employer] at 5a, slipped on ice, no alcohol lives with mother and child saw Mp in [facility] today who removed splint by pt report, still Nakul wrap and padding across R elbow inc'd pain has oxycodone 10 mg q4h prn which is not helping, last took at noon tearful and quite worried re surgery batsheva was reassured 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, on warfarin x 1y in past has minimal swelling in LEs batsheva will need to be on apixaban prophylaxis for her RUE fx, rather than the usual 2w post ortho surgery, she will likely need to be on apixaban for 2m or so until she has full mobility of her RUE short arm splint applied with help of RN, 8 layers of 4" fiberglass placed posteriorly and held in place with Nakul wrap 4" x 1 tolerated quite well and pt actually quite a bit more comfortable and much less tearful does have apt in 2d with ortho at [facility] which she plans to keep right upper arm Pain Score (Numeric/FACES): 10 - Related Data Allergies Allergy/AdvReac Type Severity Reaction Status Date / Time acetaminophen [From Tylenol] Allergy Anaphylactic Verified 01/11/18 18:09 Shock diphenhydramine HCl Allergy Hyperactivi Verified 01/11/18 18:09 [From Benadryl] ty ketorolac tromethamine Allergy Hives Verified 01/11/18 18:09 [From Toradol] meperidine HCl [From Demerol] Allergy Anaphylactic Verified 01/11/18 18:09 Shock peanut Allergy Anaphylactic Verified 01/11/18 18:09 Shock Penicillins Allergy Anaphylactic Verified 01/11/18 18:09 Shock Home Meds: Home Meds Amitriptyline [Elavil] 10 mg PO BEDTIME PRN 01/11/18 [History] Benzonatate 200 mg PO TID PRN 01/11/18 [History] Clotrimazole/Betamethasone Dip [Lotrisone Cream] 1 applic TOP BID PRN 01/11/18 [ History] Diphenoxylate HCl/Atropine [Diphenoxylate-Atrop 2.5-0.025] 1 tab PO QID PRN [History] Ondansetron [Zofran ODT] 4 mg PO Q6H PRN #10 tab.dis 09/14/19 [Rx] ALPRAZolam [Alprazolam] 1 mg PO BID 09/20/19 [History] Dextroamphetamine/Amphetamine [Adderall 20 mg Tablet] 20 mg PO BID 09/20/19 [ History] oxyCODONE HCl [Oxycodone HCl] 10 mg PO Q6H PRN #16 tablet 09/20/19 [Rx] Apixaban [Eliquis] 2.5 mg PO BID #14 tablet 10/01/19 [Rx] Past Medical History - Past Health History Medical/Surgical History: Denies Medical/Surgical History Cardiovascular History: Reports: Blood Clots/VTE/DVT Respiratory History: Reports: Other (See Below) Other Respiratory History: recently diagnosed with pulmonary nodule Genitourinary History: Reports: UTI, Recurrent Musculoskeletal History: Reports: Back Pain, Chronic, Fibromyalgia Other Musculoskeletal History: DEGENERATIVE DISC DISEASE/BULDGING DISC Psychiatric History: Reports: ADD, Anxiety, Depression Dermatologic History: Reports: Other (See Below) Other Dermatologic History: Vitiligo - Past Surgical History HEENT Surgical History: Reports: Oral Surgery Female Surgical History: Reports: Section, D&C, Hysterectomy, Other (See Below) Social & Family History - Family History Family Medical History: Noncontributory Cardiac: Reports: CAD, Hypertension, [place] - Tobacco Use Smoking Status *Q: Current Every Day Smoker Years of Tobacco use: 25 Packs/Tins Daily: 1 - Caffeine Use Caffeine Use: Reports: None - Living Situation & Occupation Living situation: Reports: , Single Occupation: Unemployed ED ROS GENERAL - Review of Systems Review Of Systems: See Below Constitutional: Reports: No Symptoms HEENT: Reports: No Symptoms Respiratory: Reports: No Symptoms Cardiovascular: Reports: No Symptoms Endocrine: Reports: No Symptoms GI/Abdominal: Reports: No Symptoms : Reports: No Symptoms Musculoskeletal: Reports: Arm Pain Skin: Reports: No Symptoms Neurological: Reports: No Symptoms Psychiatric: Reports: No Symptoms Hematologic/Lymphatic: Reports: No Symptoms Immunologic: Reports: No Symptoms ED EXAM, GENERAL - Physical Exam Exam: See Below Exam Limited By: No Limitations General Appearance: Alert, WD/WN, Mild Distress Nose: Normal Inspection, Normal Mucosa, No Blood Throat/Mouth: Normal Inspection Head: Atraumatic, Normocephalic Respiratory/Chest: No Respiratory Distress, Lungs Clear, Chest Non-Tender Cardiovascular: Regular Rate, Rhythm GI/Abdominal: Soft Extremities: Other (2+ dependent edema of RUE of wrist and hand, 2+ R radial pulse, there is padding and Nakul wrap already present from mid upper arm to mid forearm, this was left in place, 4" fiberglass that was 8 layers thick was placed on the posterior aspect and then held in place with one 4" Nakul, elbow at 90 degrees, tolerated remarkably well) Course - Vital Signs Last Recorded V/S: Last Vital Signs Temp 36.7 C 10/01/19 21:35 Pulse 91 10/01/19 21:35 Resp 18 10/01/19 21:35 BP 128/75 10/01/19 21:35 Pulse Ox 96 10/01/19 21:35 - Orders/Labs/Meds Orders: Active Orders 24 hr Category Date Time Status VL Duplex Upr Ext Veins Ltd Rt [US] Stat Exams 10/01/19 21:56 Ordered Meds: Medications Discontinued Medications Generic Name Dose Route Start Last Admin Trade Name Nickq PRN Reason Stop Dose Admin Apixaban 2.5 mg 10/01/19 21:09 10/01/19 21:38 Eliquis PO 10/01/19 21:10 2.5 mg NOW ONE Administration Hydromorphone HCl 1 mg 10/01/19 20:42 10/01/19 20:50 Dilaudid IM 10/01/19 20:43 1 mg ONETIME ONE Administration Ondansetron HCl 4 mg 10/01/19 20:43 10/01/19 20:50 Zofran Odt PO 10/01/19 20:44 4 mg ONETIME ONE Administration - Re-Assessments/Exams Free Text/Narrative Re-Assessment/Exam: 10/02/19 06:59 pt very pleased and much calmer after short arm splint applied with elbow at 90 degrees of flexion, shoulder immobilizer applied will use apixaban d/t pt's increased risk of DVT and have u/s exam the are above the splint for any existing RUE DVT (in which case pt would need full dose of apixaban), pt understands these issues and says she would f/u Departure - Departure Time of Disposition: 21:41 Disposition: Home, Self-Care 01 Condition: Good Clinical Impression: Right humeral fracture Qualifiers: Encounter type: subsequent encounter Humerus Location: shaft Fracture type: closed - Discharge Information *PRESCRIPTION DRUG MONITORING PROGRAM REVIEWED*: Not Applicable *COPY OF PRESCRIPTION DRUG MONITORING REPORT IN PATIENT LULU: Not Applicable Prescriptions: Apixaban [Eliquis] 2.5 mg PO BID #14 tablet Instructions: Humerus Fracture Treated With Immobilization, Cast or Splint Care , Adult Referrals: Moe Sage MD [Primary Care Provider] - Forms: ED Department Discharge Additional Instructions: See orthopedic surgeon in 2 days as scheduled. Keep splint clean and dry. Use shoulder immobilizer both day and night. See Wade in radiology at 2 PM tomorrow for a right upper extremity ultrasound. To decrease risk of blood clots, take apixaban 2.5 mg 1 tab 2 times a day. You will likely need to be on apixaban for longer than a week, until you have increased mobility on your arm. If there is a blood clot in the arm, you will need a higher dose for a longer period of time. Continue current pain meds. Sepsis Event Note - Evaluation Sepsis Screening Result: No Definite Risk - Focused Exam Vital Signs: Vital Signs Temp Pulse Resp BP Pulse Ox 10/01/19 21:35 36.7 C 91 18 128/75 96 Date Exam was Performed: 10/02/19 Time Exam was Performed: 06:57 - My Orders Last 24 Hours: My Active Orders 10/01/19 21:56 VL Duplex Upr Ext Veins Ltd Rt [US] Stat - Assessment/Plan Last 24 Hours: My Active Orders 10/01/19 21:56 VL Duplex Upr Ext Veins Ltd Rt [US] Stat
[2019-10-01 22:02] VITALS: BP 128/75; PULSE 91
== END 2019-10-01 21:57 | disposition home or self-care (01) ==
LOC: FB.ED 18:45
DX: S42.301A Unspecified fracture of shaft of humerus, right arm, initial encounter for closed fracture (principal); Z88.0 Allergy status to penicillin; Z88.5 Allergy status to narcotic agent; Z88.8 Allergy status to other drugs, medicaments and biological substances; F41.9 Anxiety disorder, unspecified; F32.9 Major depressive disorder, single episode, unspecified; F17.210 Nicotine dependence, cigarettes, uncomplicated; W00.0XXA Fall on same level due to ice and snow, initial encounter
CPT/HCPCS: 29125; 99284; A9270; J1170

== ENCOUNTER 2019-10-12 19:00 | Emergency (ER) | payer MEDICAID ==
[2019-10-12] MEDS ORDERED: Ondansetron 4 MG Tab.DIS PO ONE (19:01)
[2019-10-12] MEDS ORDERED: Morphine 2 MG/ML Syringe IVPUSH ONE (20:04)
[2019-10-12] MEDS ORDERED: Sodium Chloride 0.9% 1,000 ML IV SCH (20:15)
[2019-10-12] MEDS ORDERED: Ondansetron 4 MG/2 ML SDV IVPUSH ONE (20:16)
--- NOTE | 2019-10-12 20:39 | EDM.PDOC ---
ED HPI GENERAL MEDICAL PROBLEM - General Chief Complaint: Gastrointestinal Problem Stated Complaint: N/V/D Time Seen by Provider: 10/12/19 19:25 Source of Information: Reports: Patient History Limitations: Reports: No Limitations - History of Present Illness INITIAL COMMENTS - FREE TEXT/NARRATIVE: Patient presented to the ED because of pain on her rt upper arm. She recently had a rt humeral fracture requiring ORIF with tita placement whi she sutaine after falling a week ago. She is not able to take her oral dilaudid due to N/V/ D x3 days and couldn't keep anything down. There is no associated fever or chills. Upper abdomen Pain Score (Numeric/FACES): 7 - Related Data Allergies Allergy/AdvReac Type Severity Reaction Status Date / Time acetaminophen [From Tylenol] Allergy Anaphylactic Verified 10/12/19 19:12 Shock diphenhydramine HCl Allergy Hyperactivi Verified 10/12/19 19:12 [From Benadryl] ty ketorolac tromethamine Allergy Hives Verified 10/12/19 19:12 [From Toradol] meperidine HCl [From Demerol] Allergy Anaphylactic Verified 10/12/19 19:12 Shock peanut Allergy Anaphylactic Verified 10/12/19 19:12 Shock Penicillins Allergy Anaphylactic Verified 10/12/19 19:12 Shock Home Meds: Home Meds Amitriptyline [Elavil] 10 mg PO BEDTIME PRN 01/11/18 [History] Benzonatate 200 mg PO TID PRN 01/11/18 [History] Clotrimazole/Betamethasone Dip [Lotrisone Cream] 1 applic TOP BID PRN 01/11/18 [ History] Diphenoxylate HCl/Atropine [Diphenoxylate-Atrop 2.5-0.025] 1 tab PO QID PRN [History] Ondansetron [Zofran ODT] 4 mg PO Q6H PRN #10 tab.dis 09/14/19 [Rx] ALPRAZolam [Alprazolam] 1 mg PO BID 09/20/19 [History] Dextroamphetamine/Amphetamine [Adderall 20 mg Tablet] 20 mg PO BID 09/20/19 [ History] oxyCODONE HCl [Oxycodone HCl] 10 mg PO Q6H PRN #16 tablet 09/20/19 [Rx] Apixaban [Eliquis] 2.5 mg PO BID #14 tablet 10/01/19 [Rx] Past Medical History - Past Health History Medical/Surgical History: Denies Medical/Surgical History Cardiovascular History: Reports: Blood Clots/VTE/DVT Respiratory History: Reports: Other (See Below) Other Respiratory History: recently diagnosed with pulmonary nodule Genitourinary History: Reports: UTI, Recurrent Musculoskeletal History: Reports: Back Pain, Chronic, Fibromyalgia Other Musculoskeletal History: DEGENERATIVE DISC DISEASE/BULDGING DISC Psychiatric History: Reports: ADD, Anxiety, Depression Dermatologic History: Reports: Other (See Below) Other Dermatologic History: Vitiligo - Past Surgical History HEENT Surgical History: Reports: Oral Surgery Female Surgical History: Reports: Section, D&C, Hysterectomy, Other (See Below) Social & Family History - Family History Family Medical History: Noncontributory Cardiac: Reports: CAD, Hypertension, [place] - Caffeine Use Caffeine Use: Reports: None - Living Situation & Occupation Living situation: Reports: , Single Occupation: Unemployed ED ROS GENERAL - Review of Systems Review Of Systems: See Below Constitutional: Reports: No Symptoms HEENT: Reports: No Symptoms Respiratory: Reports: No Symptoms Cardiovascular: Reports: No Symptoms Endocrine: Reports: No Symptoms GI/Abdominal: Reports: Diarrhea, Nausea, Vomiting. Denies: Abdominal Pain Musculoskeletal: Reports: No Symptoms Skin: Reports: No Symptoms Neurological: Reports: No Symptoms Psychiatric: Reports: No Symptoms ED EXAM, GI/ABD - Physical Exam Exam: See Below Exam Limited By: No Limitations General Appearance: Alert, No Apparent Distress Ears: Normal External Exam, Normal Canal, Hearing Grossly Normal Nose: Normal Inspection, Normal Mucosa, No Blood Throat/Mouth: Normal Inspection, Normal Lips, Normal Teeth Head: Atraumatic, Normocephalic Neck: Normal Inspection, Supple, Non-Tender, Full Range of Motion Respiratory/Chest: No Respiratory Distress, Lungs Clear, Normal Breath Sounds Cardiovascular: Normal Peripheral Pulses, Regular Rate, Rhythm, No Edema GI/Abdominal Exam: Normal Bowel Sounds, Soft, Non-Tender Course - Vital Signs Text/Narrative:: Labs reviewed and discussed wwith patient NS 1 L bolus Zofran 4 mg IV x1 Morphine 4 mg IV x1 Vistaril 50 mg IM x1 Last Recorded V/S: Last Vital Signs Temp 37.1 C 10/12/19 19:05 Pulse 88 10/12/19 19:05 Resp 20 10/12/19 19:05 BP 124/68 10/12/19 19:05 Pulse Ox 98 10/12/19 19:05 - Orders/Labs/Meds Orders: Active Orders 24 hr Category Date Time Status Sodium Chloride 0.9% [Normal Saline] 1,000 ml Med 10/12/19 20:15 Active IV ASDIRECTED Medication Orders Sodium Chloride (Normal Saline) 1,000 mls @ 999 mls/hr IV ASDIRECTED YASEMIN Last Admin: 10/12/19 20:35 Dose: 999 mls/hr Labs: Laboratory Tests 10/12/19 10/12/19 Range/Units 20:05 20:05 WBC 10.4 (4.5-12.0) X10-3/uL RBC 4.73 (3.23-5.20) x10(6)uL Hgb 13.7 (11.5-15.5) g/dL Hct 41.1 (30.0-51.3) % MCV 86.9 (80-96) fL MCH 29.0 (27.7-33.6) pg MCHC 33.3 (32.2-35.4) g/dL RDW 14.8 (11.5-15.5) % Plt Count 628 H (125-369) X10(3)uL MPV 7.3 L (7.4-10.4) fL Neut % (Auto) 69.6 (46-82) % Lymph % (Auto) 20.0 (13-37) % Fajardo % (Auto) 4.9 (4-12) % Eos % (Auto) 3 (1.0-5.0) % Baso % (Auto) 3 H (0-2) % Neut # (Auto) 7.2 (1.6-8.3) # Lymph # (Auto) 2.1 (0.6-5.0) # Fajardo # (Auto) 0.5 (0.0-1.3) # Eos # (Auto) 0.3 (0.0-0.8) # Baso # (Auto) 0.3 H (0.0-0.2) # Sodium 140 (135-145) mmol/L Potassium 3.9 (3.5-5.3) mmol/L Chloride 105 (100-110) mmol/L Carbon Dioxide 23 (21-32) mmol/L BUN 16 (7-18) mg/dL Creatinine 0.7 (0.55-1.02) mg/dL Est Cr Clr Drug Dosing 102.38 mL/min Estimated GFR (MDRD) > 60 (>60) BUN/Creatinine Ratio 22.9 H (9-20) Glucose 113 (80-116) mg/dL Calcium 9.8 (8.6-10.2) mg/dL Meds: Medications Generic Name Dose Route Start Last Admin Trade Name Freq PRN Reason Stop Dose Admin Sodium Chloride 1,000 mls @ 999 mls/hr 10/12/19 20:15 10/12/19 20:35 Normal Saline IV 999 mls/hr ASDIRECTED YASEMIN Administration Discontinued Medications Generic Name Dose Route Start Last Admin Trade Name Freq PRN Reason Stop Dose Admin Hydroxyzine HCl 50 mg 10/12/19 21:30 10/12/19 21:48 Vistaril IM 10/12/19 21:31 50 mg ONETIME ONE Administration Morphine Sulfate 4 mg 10/12/19 20:04 10/12/19 20:40 Morphine IVPUSH 10/12/19 20:05 4 mg ONETIME ONE Administration Ondansetron HCl 4 mg 10/12/19 20:16 10/12/19 20:35 Zofran IVPUSH 10/12/19 20:17 4 mg ONETIME ONE Administration Departure - Departure Time of Disposition: 20:55 Disposition: Home, Self-Care 01 Condition: Good Clinical Impression: Gastroenteritis, Dehydration - Discharge Information Instructions: Viral Gastroenteritis, Adult Referrals: Moe Sage MD [Primary Care Provider] - Forms: ED Department Discharge Additional Instructions: Please read discharge instructions on viral gastroenteritis frequent hand washing increase oral fluids zofran ODT 4 mg every 4 hours as needed for nausea/vomiting you can take imodium(over the counter) 2 tablets every 6 hours as needed for diarrhea until you have a normal bowel movement Sepsis Event Note - Evaluation Sepsis Screening Result: No Definite Risk - Focused Exam Vital Signs: Vital Signs Temp Pulse Resp BP Pulse Ox 10/12/19 19:05 37.1 C 88 20 124/68 98 Date Exam was Performed: 10/12/19 Time Exam was Performed: 21:57 - My Orders Last 24 Hours: My Active Orders 10/12/19 20:15 Sodium Chloride 0.9% [Normal Saline] 1,000 ml IV ASDIRECTED - Assessment/Plan Last 24 Hours: My Active Orders 10/12/19 20:15 Sodium Chloride 0.9% [Normal Saline] 1,000 ml IV ASDIRECTED
[2019-10-12] MEDS ORDERED: hydrOXYzine HCl 50 MG/ML SDV IM ONE (21:30)
[2019-10-13 00:51] VITALS: BP 113/68; PULSE 97
== END 2019-10-12 22:25 | disposition home or self-care (01) ==
LOC: FB.ED 19:00
DX: K52.9 Noninfective gastroenteritis and colitis, unspecified (principal); E86.0 Dehydration; F41.9 Anxiety disorder, unspecified; Z79.899 Other long term (current) drug therapy; Z88.0 Allergy status to penicillin; Z91.018 Allergy to other foods; Z88.8 Allergy status to other drugs, medicaments and biological substances; Z88.5 Allergy status to narcotic agent
CPT/HCPCS: 36415; 80048; 85025; 96361; 96372; 96374; 96375; 99284; A9270; J2270; J2405; J3410; J7030

== ENCOUNTER 2020-03-28 15:37 | Emergency (ER) | payer MEDICAID ==
[2020-03-28 15:50] VITALS: BP 140/74; PULSE 81
[2020-03-28] MEDS ORDERED: Sodium Chloride 0.9% 10 ML Syringe FLUSH PRN (16:06)
[2020-03-28] MEDS ORDERED: Ondansetron 4 MG/2 ML SDV IVPUSH ONE (16:08)
[2020-03-28] MEDS ORDERED: Sodium Chloride 0.9% 1,000 ML IV SCH (16:15)
[2020-03-28] MEDS ORDERED: Iopamidol 755 Mg/ML 100 ML Bottle IV ONE (16:36)
[2020-03-28] MEDS ORDERED: Atropine/Diphenoxylate 0.025-2.5 MG Tab PO ONE (17:01)
[2020-03-28] MEDS ORDERED: Metoclopramide 10 MG/2 ML SDV IVPUSH ONE (17:11)
--- NOTE | 2020-03-28 17:37 | EDM.PDOC ---
ED HPI GENERAL MEDICAL PROBLEM - General Chief Complaint: Abdominal Pain Stated Complaint: PAIN Time Seen by Provider: 03/28/20 15:50 Source of Information: Reports: Patient History Limitations: Reports: No Limitations - History of Present Illness INITIAL COMMENTS - FREE TEXT/NARRATIVE: Patient presented to the ED because of abdominal pain/N/V/D which started 3 days ago. The pain is sharp and cramping. The diarrhea is mostly watery. there is no associated fever, chills or urinary symptoms. Abdomen Pain Score (Numeric/FACES): 8 - Related Data Allergies Allergy/AdvReac Type Severity Reaction Status Date / Time acetaminophen [From Tylenol] Allergy Anaphylactic Verified 10/13/19 00:55 Shock diphenhydramine HCl Allergy Hyperactivi Verified 10/13/19 00:55 [From Benadryl] ty ketorolac tromethamine Allergy Hives Verified 10/13/19 00:55 [From Toradol] meperidine HCl [From Demerol] Allergy Anaphylactic Verified 10/13/19 00:55 Shock peanut Allergy Anaphylactic Verified 10/13/19 00:55 Shock Penicillins Allergy Anaphylactic Verified 10/13/19 00:55 Shock Home Meds: Home Meds Amitriptyline [Elavil] 10 mg PO BEDTIME PRN 01/11/18 [History] Ondansetron [Zofran ODT] 4 mg PO Q6H PRN #10 tab.dis 09/14/19 [Rx] ALPRAZolam [Alprazolam] 1 mg PO BID 09/20/19 [History] Dextroamphetamine/Amphetamine [Adderall 20 mg Tablet] 20 mg PO BID 09/20/19 [History] Ondansetron [Zofran ODT] 4 mg PO Q4H PRN #5 tab.dis 03/28/20 [Rx] Sertraline [Zoloft] 100 mg PO DAILY 03/28/20 [History] Past Medical History - Past Health History Medical/Surgical History: Denies Medical/Surgical History Cardiovascular History: Reports: Blood Clots/VTE/DVT Respiratory History: Reports: Other (See Below) Other Respiratory History: recently diagnosed with pulmonary nodule Genitourinary History: Reports: UTI, 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: Musculoskeletal History: Reports: Back Pain, Chronic, Fibromyalgia Other Musculoskeletal History: DEGENERATIVE DISC DISEASE/BULDGING DISC Psychiatric History: Reports: ADD, Anxiety, Depression Dermatologic History: Reports: Other (See Below) Other Dermatologic History: Vitiligo - Infectious Disease History Infectious Disease History: Reports: Chicken Pox - Past Surgical History HEENT Surgical History: Reports: Oral Surgery Female Surgical History: Reports: Section, D&C, Hysterectomy, Other (See Below) Social & Family History - Family History Family Medical History: Noncontributory Cardiac: Reports: CAD, Hypertension, [place] - Tobacco Use Smoking Status *Q: Unknown Ever Smoked - Caffeine Use Caffeine Use: Reports: None - Living Situation & Occupation Living situation: Reports: , Single Occupation: Unemployed ED ROS GENERAL - Review of Systems Review Of Systems: See Below Constitutional: Reports: No Symptoms HEENT: Reports: No Symptoms Respiratory: Reports: No Symptoms Cardiovascular: Reports: No Symptoms Endocrine: Reports: No Symptoms GI/Abdominal: Reports: Abdominal Pain, Nausea, Vomiting : Reports: No Symptoms Musculoskeletal: Reports: No Symptoms Skin: Reports: No Symptoms ED EXAM, GI/ABD - Physical Exam Exam: See Below Exam Limited By: No Limitations General Appearance: Alert, No Apparent Distress Ears: Normal External Exam, Hearing Grossly Normal Nose: Normal Inspection, Normal Mucosa Throat/Mouth: Normal Inspection, Normal Lips Head: Atraumatic, Normocephalic Neck: Normal Inspection, Supple, Non-Tender, Full Range of Motion Respiratory/Chest: No Respiratory Distress, Lungs Clear, Normal Breath Sounds Cardiovascular: Normal Peripheral Pulses, Regular Rate, Rhythm, No Edema, No Gallop GI/Abdominal Exam: Soft, Other (hyperactive bowel sound, tenderness over the eigastrium and LLQ.) (Female) Exam: Normal External Exam, Normal Speculum Exam Back Exam: Normal Inspection, Full Range of Motion Extremities: Normal Inspection, Normal Range of Motion, Non-Tender Course - Vital Signs Text/Narrative:: Labs/[id number] was discussed with patient NS 1 L bolus Zofran 4 mg IV x1 Lomotil 2 po x1 Reglan 10 mg IV x1 Last Recorded V/S: Last Vital Signs Temp 36.8 C 03/28/20 15:48 Pulse 81 03/28/20 15:48 Resp 18 03/28/20 15:48 BP 140/74 03/28/20 15:48 Pulse Ox 99 03/28/20 15:48 - Orders/Labs/Meds Orders: Active Orders 24 hr Category Date Time Status Abdomen Pelvis w Cont [CT] Stat Exams 03/28/20 16:15 Taken Saline Lock Insert [OM.PC] Routine Oth 03/28/20 16:06 Ordered Labs: Laboratory Tests 03/28/20 03/28/20 03/28/20 Range/Units 16:18 16:18 16:45 WBC 9.3 (4.5-12.0) X10-3/uL RBC 4.53 (3.23-5.20) x10(6)uL Hgb 12.9 (11.5-15.5) g/dL Hct 40.1 (30.0-51.3) % MCV 88.6 (80-96) fL MCH 28.5 (27.7-33.6) pg MCHC 32.2 (32.2-35.4) g/dL RDW 13.7 (11.5-15.5) % Plt Count 315 (125-369) X10(3)uL MPV 7.4 (7.4-10.4) fL Neut % (Auto) 66.6 (46-82) % Lymph % (Auto) 22.5 (13-37) % [place] % (Auto) 4.3 (4-12) % Eos % (Auto) 4 (1.0-5.0) % Baso % (Auto) 2 (0-2) % Neut # (Auto) 6.2 (1.6-8.3) # Lymph # (Auto) 2.1 (0.6-5.0) # [place] # (Auto) 0.4 (0.0-1.3) # Eos # (Auto) 0.4 (0.0-0.8) # Baso # (Auto) 0.2 (0.0-0.2) # Sodium (135-145) mmol/L Potassium (3.5-5.3) mmol/L Chloride (100-110) mmol/L Carbon Dioxide (21-32) mmol/L BUN (7-18) mg/dL Creatinine (0.55-1.02) mg/dL Est Cr Clr Drug Dosing Estimated GFR (MDRD) (>60) BUN/Creatinine Ratio (9-20) Glucose (80-116) mg/dL Calcium (8.6-10.2) mg/dL Total Bilirubin (0.1-1.3) mg/dL AST (5-25) IU/L ALT (12-36) U/L Alkaline Phosphatase (56-112) IU/L Total Protein (6.0-8.0) g/dL Albumin (3.5-5.2) g/dL Globulin g/dL Albumin/Globulin Ratio Amylase (25-115) U/L Lipase (73-393) U/L Urine Color Yellow (YELLOW) Urine Appearance Slightly cloudy (CLEAR) Urine pH 6.0 (5.0-6.5) Ur Specific [place] 1.015 (1.010-1.025) Urine Protein Negative (NEGATIVE) mg/dL Urine Glucose (UA) Normal (NORMAL) mg/dL Urine Ketones Negative (NEGATIVE) mg/dL Urine Occult Blood Negative (NEGATIVE) Urine Nitrite Negative (NEGATIVE) Urine Bilirubin Negative (NEGATIVE) Urine Urobilinogen Normal (NEGATIVE) mg/dL Ur Leukocyte Esterase Negative (NEGATIVE) Urine RBC 0-5 (0-5) Urine WBC 0-5 (0-5) Ur Squamous Epith Cells Occasional (NS,R,O) Urine Bacteria Few H (NS) Urine HCG, Qual Negative (NEGATIVE) 03/28/20 03/28/20 Range/Units 16:45 16:45 WBC (4.5-12.0) X10-3/uL RBC (3.23-5.20) x10(6)uL Hgb (11.5-15.5) g/dL Hct (30.0-51.3) % MCV (80-96) fL MCH (27.7-33.6) pg MCHC (32.2-35.4) g/dL RDW (11.5-15.5) % Plt Count (125-369) X10(3)uL MPV (7.4-10.4) fL Neut % (Auto) (46-82) % Lymph % (Auto) (13-37) % [place] % (Auto) (4-12) % Eos % (Auto) (1.0-5.0) % Baso % (Auto) (0-2) % Neut # (Auto) (1.6-8.3) # Lymph # (Auto) (0.6-5.0) # [place] # (Auto) (0.0-1.3) # Eos # (Auto) (0.0-0.8) # Baso # (Auto) (0.0-0.2) # Sodium 135 (135-145) mmol/L Potassium 4.1 (3.5-5.3) mmol/L Chloride 100 D (100-110) mmol/L Carbon Dioxide 24 (21-32) mmol/L BUN 13 (7-18) mg/dL Creatinine 0.7 (0.55-1.02) mg/dL Est Cr Clr Drug Dosing TNP Estimated GFR (MDRD) > 60 (>60) BUN/Creatinine Ratio 18.6 (9-20) Glucose 94 (80-116) mg/dL Calcium 9.1 (8.6-10.2) mg/dL Total Bilirubin 0.2 (0.1-1.3) mg/dL AST 18 D (5-25) IU/L ALT 18 D (12-36) U/L Alkaline Phosphatase 78 (56-112) IU/L Total Protein 7.0 (6.0-8.0) g/dL Albumin 3.3 L (3.5-5.2) g/dL Globulin 3.7 g/dL Albumin/Globulin Ratio 0.9 Amylase 53 (25-115) U/L Lipase 115 (73-393) U/L Urine Color (YELLOW) Urine Appearance (CLEAR) Urine pH (5.0-6.5) Ur Specific [place] (1.010-1.025) Urine Protein (NEGATIVE) mg/dL Urine Glucose (UA) (NORMAL) mg/dL Urine Ketones (NEGATIVE) mg/dL Urine Occult Blood (NEGATIVE) Urine Nitrite (NEGATIVE) Urine Bilirubin (NEGATIVE) Urine Urobilinogen (NEGATIVE) mg/dL Ur Leukocyte Esterase (NEGATIVE) Urine RBC (0-5) Urine WBC (0-5) Ur Squamous Epith Cells (NS,R,O) Urine Bacteria (NS) Urine HCG, Qual (NEGATIVE) Meds: Medications Discontinued Medications Generic Name Dose Route Start Last Admin Trade Name Freq PRN Reason Stop Dose Admin Hydrocodone Bitart/Acetaminophen 1 tab 03/28/20 17:39 03/28/20 18:01 [place] 325-5 Mg PO 03/28/20 17:40 1 tab ONETIME ONE Administration Diphenoxylate HCl/Atropine 2 tab 03/28/20 17:01 03/28/20 17:11 Lomotil 0.025-2.5 Mg PO 03/28/20 17:02 2 tab ONETIME ONE Administration Sodium Chloride 1,000 mls @ 999 mls/hr 03/28/20 16:15 03/28/20 16:27 Normal Saline IV 999 mls/hr ASDIRECTED YASEMIN Administration Iopamidol 100 ml 03/28/20 16:36 03/28/20 16:58 Isovue-370 (76%) IV 03/28/20 16:37 100 ml . DIRECTED ONE Administration Metoclopramide HCl 10 mg 03/28/20 17:11 03/28/20 17:17 Reglan IVPUSH 03/28/20 17:12 10 mg ONETIME ONE Administration Ondansetron HCl 4 mg 03/28/20 16:08 03/28/20 16:27 Zofran IVPUSH 03/28/20 16:09 4 mg ONETIME ONE Administration Sodium Chloride 10 ml 03/28/20 16:06 03/28/20 16:27 Saline Flush FLUSH 10 ml ASDIRECTED PRN Administration Keep Vein Open Departure - Departure Time of Disposition: 17:35 Disposition: Home, Self-Care 01 Condition: Good Clinical Impression: Acute gastroenteritis - Discharge Information Prescriptions: Ondansetron [Zofran ODT] 4 mg PO Q4H PRN #5 tab.dis PRN Reason: Nausea Instructions: Viral Gastroenteritis, Adult, [id number] Referrals: Moe Sage MD [Primary Care Provider] - Forms: ED Department Discharge Additional Instructions: Please read discharge instructions on viral gastroenteritis Frequent hand washing Incresae oral fluids 2-3 liters a day imodium, take 2 tablets every 6 hours as needed for diarrhea(over the counter) Zofran ODT 4 mg every 4 hours as needed for nausea Follow up as needed Sepsis Event Note (ED) - Evaluation Sepsis Screening Result: No Definite Risk - Focused Exam Vital Signs: Vital Signs Temp Pulse Resp BP Pulse Ox 03/28/20 15:48 36.8 C 81 18 140/74 99 - My Orders Last 24 Hours: My Active Orders 03/28/20 16:06 Saline Lock Insert [OM.PC] Routine 03/28/20 16:15 Abdomen Pelvis w Cont [CT] Stat - Assessment/Plan Last 24 Hours: My Active Orders 03/28/20 16:06 Saline Lock Insert [OM.PC] Routine 03/28/20 16:15 Abdomen Pelvis w Cont [CT] Stat
[2020-03-28] MEDS ORDERED: Acetaminophen/HYDROcodone 325-5 MG Tab PO ONE (17:39)
== END 2020-03-28 17:40 | disposition home or self-care (01) ==
LOC: FB.ED 15:37
DX: K52.9 Noninfective gastroenteritis and colitis, unspecified (principal); F41.9 Anxiety disorder, unspecified; F32.9 Major depressive disorder, single episode, unspecified; Z88.6 Allergy status to analgesic agent; Z88.0 Allergy status to penicillin; Z91.010 Allergy to peanuts; Z90.710 Acquired absence of both cervix and uterus; Z88.8 Allergy status to other drugs, medicaments and biological substances; Z79.899 Other long term (current) drug therapy
CPT/HCPCS: 36415; 74177; 80053; 81001; 81025; 82150; 83690; 85025; 96361; 96374; 96375; 99284; A9270; J2405; J2765; J7030; Q9967